=== PATIENT | female | born 1965 | race Caucasian/White ===

== ENCOUNTER 2022-09-12 01:33 | Emergency (ER) | payer OTHER ==
[2022-09-12 01:46] VITALS: BP 135/84; PULSE 86; RESP 20; TEMP 97.2; BMI 23.8
[2022-09-12] MEDS ORDERED: KETOROLAC TROMETHAMINE 30 MG/1 ML VIAL IVPUSH ONE (02:37)
[2022-09-12] MEDS ORDERED: CEFAZOLIN 1 GM in DEXTROSE 5%-WATER - 50 ML IVPB ONE (02:37)
[2022-09-12] MEDS ORDERED: KETOROLAC TROMETHAMINE 30 MG/1 ML VIAL ONE (02:38)
[2022-09-12] MEDS ORDERED: ceFAZolin SODIUM 1 GM VIAL ONE (02:43)
[2022-09-12 02:50] LABS: HEMATOCRIT 35.9 % (32.4-45.2); HEMOGLOBIN 12.6 GM/dL (10.7-15.3); MCH 30.6 pg (25.7-33.7); MEAN CELL VOLUME 87.4 fl (80-96); MEAN PLT VOLUME 7.7 fl (7.5-11.1); PLATELET COUNT 288 10^3/uL (134-434); RDW 12.8 % (11.6-15.6); WHITE BLOOD COUNT 10.7 K/mm3 (4.0-10.0)
[2022-09-12 03:10] LABS: POTASSIUM 3.3 mmol/L (3.5-5.1)
[2022-09-12 03:12] LABS: ALBUMIN 4.3 g/dl (3.4-5.0); BLOOD UREA NITROGEN 13.2 mg/dL (7-18); CALCIUM 9.6 mg/dL (8.5-10.1)
[2022-09-12 03:15] LABS: CREATININE 0.8 mg/dL (0.55-1.3)
[2022-09-12 03:17] LABS: BILIRUBIN,TOTAL 0.4 mg/dL (0.2-1); TOT PROT 7.8 g/dl (6.4-8.2)
== END 2022-09-12 04:18 | disposition home or self-care (01) ==
LOC: JER 01:33
PROC: 3E03329 Introduction of Other Anti-infective into Peripheral Vein, Percutaneous Approach (ICD-10-PCS; principal; 2022-09-12)
PROC: 3E0333Z Introduction of Anti-inflammatory into Peripheral Vein, Percutaneous Approach (ICD-10-PCS; 2022-09-12)
DX: S61.451A Open bite of right hand, initial encounter (principal); L03.113 Cellulitis of right upper limb; W55.01XA Bitten by cat, initial encounter
CPT/HCPCS: 36415; 73130-TC-RT-FY; 80053; 85027; 87040; 99285-25